=== PATIENT | male | born 1960 | race Caucasian/White ===

== ENCOUNTER 2019-08-20 09:36 | Outpatient (CLI) | payer OTHER, SELFPAY ==
--- NOTE | ~2019-08-20 | US_ITS ---
EXAMINATION: US venous doppler [facility] DATE: 08/20/2019 11:49 INDICATION: Right lower limb pain and swelling. Positive d-dimer. TECHNIQUE: Grayscale ultrasound images without and with compression and Doppler ultrasound images of the bilateral lower extremity veins were obtained. COMPARISON: None. FINDINGS: The visualized portions of right common femoral vein, profunda (deep) femoral vein and greater saphen ous vein outflow are patent. Noncompressible occlusive appearing deep venous thrombosis beginning in the inferior right femoral vein extending into the popliteal vein and below the knee into the gastroc nemius vein, posterior tibial veins and peroneal veins The visualized portions of left common femoral vein, profunda femoral vein, femoral vein, popliteal v ein, posterior tibial veins, peroneal veins, gastrocnemius vein and greater saphenous vein outflow ar e patent. IMPRESSION: 1. Deep venous thrombosis in the veins below the right knee extending into the inferior right femora l vein. 2. No deep venous thrombosis in the left lower limb. Reviewed, dictated and finalized at location A. IMPRESSION: 1. Deep venous thrombosis in the veins below the right knee extending into the inferior right femoral vein. 2. No deep venous thrombosis in the left lower limb.
[2019-08-20 09:51] LABS: Basophils Absolute Auto 0.04 K/mm3 (0.00-0.10); Basophils Percent Auto 0.7 % (0.0-1.0); Eosinophils Absolute Auto 0.32 K/mm3 (0.02-0.50); Eosinophils Percent Auto 5.5 % (1.0-6.0); Hematocrit 43.9 % (40.0-54.0); Hemoglobin 15.6 g/dL (14.0-18.0); Immature Granulocyte Absolute 0.01 K/mm3 (0.00-0.00); Immature Granulocyte Percent A 0.2 % (0.0-0.0); Lymphocytes Absolute Auto 1.58 K/mm3 (1.10-4.50); Lymphocytes Percent Auto 27.1 % (18.0-42.0); Mean Corpuscular HGB Conc 35.5 g/dL (32.0-36.0); Mean Corpuscular Hemoglobin 31.4 pg (27.0-31.0); Mean Corpuscular Volume 88.3 fL (78.0-102.0); Mean Platelet Volume 9.4 fl (8.7-11.0); Monocytes Absolute Auto 0.67 K/mm3 (0.10-0.90); Monocytes Percent Auto 11.5 % (2.0-11.0); Neutrophils Absolute Auto 3.2 K/mm3 (1.7-7.2); Platelet Count Result 203 K/mm3 (150-420); Red Blood Count 4.97 M/mm3 (4.70-6.10); Red Cell Distribution Width 11.9 % (11.6-14.4); White Blood Count 5.8 K/mm3 (4.8-10.8)
[2019-08-20 10:21] LABS: D Dimer 9.53 mg/L (0.19-0.50)
[2019-08-20 10:54] LABS: Alanine Aminotransferase 30 U/L (16-63); Alkaline Phosphatase 85 U/L (46-116); Aspartate Amino Transferase 31 U/L (15-37); Bilirubin,Total 0.9 mg/dL (0.00-1.00); Blood Urea Nitrogen 15 mg/dL (7-18); Calcium 9.1 mg/dL (8.5-10.1); Carbon Dioxide 30 mmol/L (21-32); Chloride 100 mmol/L (98-108); Estimated Glomerular Filt Rate > 60; Glucose 93 mg/dL (70-99); Osmolality Calculated 288 mOsm/kg (285-295); Sodium 139 mmol/L (136-145); Total Protein 7.6 g/dL (6.4-8.2)
[2019-08-20] MEDS: ENOXAPARIN 100 MG/ML SYRINGE SUB-Q (14:55)
[2019-08-20] MEDS: ENOXAPARIN 40 MG/0.4 ML SYRINGE SUB-Q (14:55)
[2019-09-04 15:56] LABS: Antithrombin III Activity 115 % activity (80-120); Protein S Antigen, Free 103 % normal (57-171)
== END 2019-08-20 09:37 | disposition home or self-care (01) ==
PROVIDERS: PCP Family Medicine; Visit Provider Family Medicine
DX: I80.11 Phlebitis and thrombophlebitis of right femoral vein (principal); R60.0 Localized edema; W57.XXXA Bitten or stung by nonvenomous insect and other nonvenomous arthropods, initial encounter
CPT/HCPCS: 36415; 80053; 81240; 81241; 85025; 85301; 85303; 85306; 85380; 86618; 93970; 96372; J1650

== ENCOUNTER 2019-08-21 14:56 | Outpatient (CLI) | payer OTHER, SELFPAY ==
[2019-08-21] MEDS: ENOXAPARIN 100 MG/ML SYRINGE SUB-Q (15:11)
[2019-08-21] MEDS: ENOXAPARIN 40 MG/0.4 ML SYRINGE SUB-Q (15:12)
== END 2019-08-21 14:57 | disposition home or self-care (01) ==
LOC: CHSTREATRM 14:57
PROVIDERS: PCP Family Medicine; Visit Provider Family Medicine
DX: I82.409 Acute embolism and thrombosis of unspecified deep veins of unspecified lower extremity (principal)
CPT/HCPCS: 96372; J1650

== ENCOUNTER 2020-10-08 10:40 | Outpatient (CLI) | payer MEDICAID, SELFPAY ==
--- NOTE | ~2020-10-08 | MR_ITS ---
EXAMINATION: MR brain/brain stem wo con EXAM DATE: 10/08/2020 11:27 INDICATION: Facial pain, persistent frontal headache. Sinus surgery 2010. TECHNIQUE: Magnetic resonance imaging (MRI) of the brain/brain stem obtained without contrast. Sagitt al T1, axial diffusion, gradient echo (T2*), T1, T2, FLAIR sequences obtained. There is no prior st udy for comparison. FINDINGS: There are no areas of restricted diffusion to suggest acute infarction. There is no acute hemorrhage seen on the T2*, a hemosiderin sensitive sequence. No intraparenchymal brain mass. The ve ntricles are normal in size. There are no extra-axial collections. Flow voids are seen in the cereb ral arteries on the T2-weighted sequences consistent with their expected patency. The orbits are unr emarkable. Soft tissue is unremarkable. Arachnoid cyst in the left middle cranial fossa anteriorly measuring 4 cm. This is not a clinically significant finding. IMPRESSION: Incidental left middle cranial fossa arachnoid cyst. Otherwise unremarkable MRI brain. Reviewed, dictated and finalized at location B. IMPRESSION: Incidental left middle cranial fossa arachnoid cyst. Otherwise unre markable MRI brain.
== END 2020-10-08 10:41 | disposition home or self-care (01) ==
LOC: CHSIMG 10:43
PROVIDERS: PCP Family Medicine; Visit Provider Family Medicine
DX: R51.9 Headache, unspecified (principal)
CPT/HCPCS: 70551

== ENCOUNTER 2021-04-29 16:09 | Outpatient (CLI) | payer OTHER, SELFPAY ==
--- NOTE | ~2021-04-29 | XR_ITS ---
EXAMINATION: XR abdomen obstructive series DATE: 04/29/2021 16:45 INDICATION: Left upper quadrant discomfort and intermittent constipation TECHNIQUE: Frontal supine and upright views of the abdomen were obtained. COMPARISON: None. FINDINGS: Large amount of stool scattered throughout the colon. No dilated loops of gas-filled bowel to suggest obstruction. No free intraperitoneal gas. Visualized lung bases are clear. Lung bases are clear. Hea rt size is normal. 15 degrees lumbar dextroscoliosis. IMPRESSION: 1. Large amount of colonic stool which could be seen with constipation. Reviewed, dictated and finalized at location A. SER AND OILER
[2021-04-29 16:27] LABS: Hematocrit 43.2 % (40.0-54.0); Hemoglobin 15.7 g/dL (14.0-18.0); Mean Corpuscular HGB Conc 36.3 g/dL (32.0-36.0); Mean Corpuscular Hemoglobin 34.4 pg (27.0-31.0); Mean Corpuscular Volume 94.7 fL (78.0-102.0); Mean Platelet Volume 9.3 fl (8.7-11.0); Platelet Count Result 150 K/mm3 (150-420); Red Blood Count 4.56 M/mm3 (4.70-6.10); White Blood Count 3.8 K/mm3 (4.8-10.8)
[2021-04-29 16:29] LABS: Appearance Urine Clear (Clear); Bilirubin Urine Negative (Negative); Color Urine Light Yellow (Yellow); Glucose Urine UA Negative (Negative); Ketones Urine Negative (Negative); Leukocyte Esterase Ur Negative (Negative); Nitrate Urine Negative (Negative); Protein Urine Negative (Negative); Urobilinogen Urine 0.2 mg/dL (0.2-1.0)
[2021-04-29 16:32] LABS: Add Urine Microscopic? YES; Bacteria Urine Trace /hpf; Blood Urine Trace-Intact (Negative); RBC Urine None seen /hpf (0-2); Squamous Epithelial Cell Urine Rare /hpf (Few); WBC Urine None seen /hpf (0-3)
[2021-04-29 16:49] LABS: Band Neutrophils Percent 1 % (0-6); Basophils Absolute Manual 0.03 K/mm3 (0-0.1); Basophils Percent Manual 1 % (0-1); Eosinophils Absolute Manual 0.11 K/mm3 (0.02-0.5); Eosinophils Percent Manual 3 % (1-6); Lymphocytes Absolute Manual 2.01 K/mm3 (1.1-4.5); Lymphocytes Percent Manual 53 % (18-44); Monocytes Absolute Manual 0.22 K/mm3 (0.1-0.90); Monocytes Percent Manual 6 % (3-9); Neutrophils Percent Manual 36 % (46-73); Platelet Estimate Adequate (Adequate); Total Cells Counted 100
[2021-04-29 17:03] LABS: Alanine Aminotransferase 80 U/L (16-63); Albumin Level 4.2 g/dL (3.4-5.0); Alkaline Phosphatase 64 U/L (46-116); Amylase 50 U/L (25-115); Anion Gap 9 mmol/L (8-16); Aspartate Amino Transferase 38 U/L (15-37); Bilirubin,Total 0.4 mg/dL (0.00-1.00); Blood Urea Nitrogen 17 mg/dL (7-18); Calcium 8.8 mg/dL (8.5-10.1); Carbon Dioxide 29 mmol/L (21-32); Chloride 103 mmol/L (98-108); Estimated Glomerular Filt Rate > 60; Glucose 93 mg/dL (70-99); Lipase 156 U/L (73-393); Osmolality Calculated 293 mOsm/kg (285-295); Potassium 3.9 mmol/L (3.5-5.1); Sodium 141 mmol/L (136-145); Total Protein 7.4 g/dL (6.4-8.2)
[2021-05-05 14:41] LABS: Hepatitis A Antibody IgM Nonreactive; Hepatitis B Core Antibody Nonreactive (Nonreactive); Hepatitis B Surface Antigen Nonreactive (Nonreactive); Hepatitis C Signal to Cutoff 0.01 ratio (<1.00); Hepatitis C Virus Antibody Nonreactive (Nonreactive)
== END 2021-04-29 16:10 | disposition home or self-care (01) ==
LOC: CHSLAB 16:12
PROVIDERS: PCP Family Medicine; Visit Provider Family Medicine
DX: R10.12 Left upper quadrant pain (principal); R94.5 Abnormal results of liver function studies
CPT/HCPCS: 36415; 74019; 80053; 80074; 81001; 82150; 83690; 85025

== ENCOUNTER 2021-05-05 08:12 | Outpatient (CLI) | payer OTHER, SELFPAY ==
--- NOTE | ~2021-05-05 | US_ITS ---
EXAMINATION: US right upper quadrant EXAM DATE: 05/05/2021 08:26 INDICATION: Elevated liver enzymes TECHNIQUE: Multiple grayscale and Doppler images of the abdomen right upper quadrant were obtained (b y a technologist who performed the scan) and subsequently reviewed. There is no prior study for frantz morgan. FINDINGS: The pancreatic head and body are normal in appearance. The pancreatic tail is not visualized. The l iver has normal echogenicity and contour. There are no focal liver lesions identified. There is no evidence of intrahepatic biliary duct dilation. Portal venous flow was seen in the hepatopedal, nor mal direction and has normal Doppler waveform. No right-sided hydronephrosis. Common bile duct measures 3 mm, which is normal. The gallbladder wall is normal in thickness, with ex pected amount of distention. No sonographic evidence of pericholecystic fluid. There is no cholelit hiases. Technologist performing exam reports patient did not demonstrate sonographic Mcmanus's sign. Please note that this sign is less reliable in patients who have received pain medication. IMPRESSION: Unremarkable abdominal ultrasound exam. Reviewed, dictated and finalized at location A. INUING EDUCATION DEAN
== END 2021-05-05 08:13 | disposition home or self-care (01) ==
LOC: CHSIMG 08:13
PROVIDERS: PCP Family Medicine; Visit Provider Family Medicine
DX: R94.5 Abnormal results of liver function studies (principal)
CPT/HCPCS: 76705

== ENCOUNTER 2021-05-15 08:42 | Outpatient (CLI) | payer OTHER, SELFPAY ==
--- NOTE | ~2021-05-15 | XR_ITS ---
EXAMINATION: XR barium swallow EXAM DATE: 05/15/2021 10:20 INDICATION: Left upper quadrant pain, belching. TECHNIQUE: Standard single and double contrast barium esophagram and upper GI examination was perform ed by radiologist Marquis Alvarado M.D. Pulsed dose reduction fluoroscopy was used with fluoroscopic time of 0.4 minutes. The DAP for this procedure was 1.1 Gycm2. A total of 28 images obtained for the ex am. FINDINGS: The pharynx is symmetric and without evidence of mass lesion or mucosal irregularity. Ther e is no esophageal stricture, diverticulum or mass identified. Small sliding gastroesophageal juncti on hernia with small amount of reflux demonstrated. The stomach has a normal appearance without evidence of mass lesion, ulceration or filling defect. T here is normal rugal fold pattern. The duodenum and duodenal sweep are normal in appearance. IMPRESSION: Small sliding gastroesophageal junction hernia with small amount of reflux demonstrated. Reviewed, dictated and finalized at location B. R DEVELOPER
== END 2021-05-15 08:43 | disposition home or self-care (01) ==
LOC: CHSIMG 08:44
PROVIDERS: PCP Family Medicine; Visit Provider Family Medicine
DX: R10.12 Left upper quadrant pain (principal)
CPT/HCPCS: 74220

== ENCOUNTER 2021-09-16 01:34 | Day surgery (SDC) | payer OTHER, SELFPAY ==
--- NOTE | 2021-08-11 09:12 | SUR.PREOP ---
Patient called to discuss prep for his colonoscopy. I let a message on his voicemail to return call.
[2021-09-16 07:50] VITALS: BP 136/73; PULSE 52; RESP 18; TEMP 36.5; O2SAT 100
[2021-09-16] MEDS: LACTATED RINGERS 1,000 ML 150 ML IV CONT (08:01)
--- NOTE | 2021-09-16 08:20 | WPDANESEPPF ---
Anes - Initial Pre Proc Eval Procedure: Operation Date: 09/16/21 09:15 Proposed Procedures p Esophagogastroduodenoscopy & Screening Colonoscopy - Blake Nascimento MD Date/Time: 09/16/21 08:20 Surgeon: Blake Nascimento MD Pre Op Diagnosis: hiatal hernia, burping, neoplasm screening Patient Data Age: 60 Gender: M Height: Weight: 89.7 kg Last Vital Signs Temp 36.5 C 09/16/21 07:50 Pulse 52 L 09/16/21 07:50 Resp 18 09/16/21 07:50 BP 136/73 09/16/21 07:50 Pulse Ox 100 09/16/21 07:50 O2 Del Method Room Air 09/16/21 07:50 Allergies Allergy/AdvReac Type Severity Reaction Status Date / Time No Known Allergies Allergy Unverified 09/16/21 07:48 Home Medications Medication Instructions Recorded Confirmed Type omeprazole 40 mg capsule,delayed 40 mg PO BID 07/02/21 08/31/21 History release Acidophilus Probiotic 08/31/21 08/31/21 History melatonin 1 mg tablet 1 mg PO DAILY 08/31/21 08/31/21 History Patient hx anesthesia problems: none Family hx anesthesia problems: none Results Review: All pre-operative results and documents have been reviewed as part of the pre-operative evaluation. [facility] Past Medical History Medical History Colon cancer screening Functional burping disorder Hiatal hernia Surgical History Surgical History History of appendectomy Social History Social History Smoking status: Never smoker Second hand tobacco smoke exposure: No Alcohol intake: current Drinks per week: 1 Substance use: never Substance use type: does not use Living arrangements: with family Gender identity (if verbalized by the patient): Male Anes - Eval Final PreProcedure Day of Procedure 09/16/21 08:20 Patient weight: normal Heart: regular rate and rhythm Lungs: clear to auscultation Airway: Mallampati scale class II Neurological: alert and oriented Last oral intake: >/= 8 hours ASA classification: II Emergent: no Anesthetic plan: proceed Anesthesia type and monitoring: general GIVS and standard monitoring Results Review: All pre-operative results and documents have been reviewed as part of the pre-operative evaluation. Informed Consent: The patient's anesthetic plan and its attendant risks and benefits were discussed with the patient/family/POA. Questions were solicited and answers provided to the satisfaction of the patient/family/POA.
--- NOTE | 2021-09-16 08:49 | PM.HPGS ---
History of Present Illness History of Present Illness Consent: Risks, benefits, and alternatives have been discussed and questions answered. Patient agrees to proceed with procedure. Chief complaint: hiatal hernia, burping, neoplasm screening Narrative: Sky Hill is a 60 year old male with burping, empiric ppi did not make a difference, esophagram showed small HH. Never had scopes. Review of Systems Constitutional: Constitutional: Denies headache(s) and Denies weakness Eyes: Eyes: Denies blurry vision ENT: Reports Normal hearing present, Denies headache(s) and Denies neck pain Cardiovascular: Cardiovascular: Denies chest pain and Denies dyspnea Respiratory: Respiratory: Denies dyspnea Gastrointestinal: Gastrointestinal: Reports no additional gastrointestinal complaints Genitourinary: Genitourinary: Denies dysuria Musculoskeletal: Musculoskeletal: Denies neck pain Integumentary/Breasts: Skin/Breast: Denies dry skin Neurologic: Reports Normal hearing present, Denies headache(s) and Denies weakness Psychiatric: Psychiatric: Denies anxiety Endocrine: Endocrine: Denies change in body appearance Hematologic/Lymphatic: Hematologic/Lymphatic: Denies easy bleeding Allergic/Immunologic: Allergic/Immunologic: Denies urticaria PMFSH Past Medical History Medical History Colon cancer screening Functional burping disorder Hiatal hernia Surgical History Surgical History History of appendectomy Social History Social History Smoking status: Never smoker Second hand tobacco smoke exposure: No Alcohol intake: current Drinks per week: 1 Substance use: never Substance use type: does not use Living arrangements: with family Gender identity (if verbalized by the patient): Male Meds Home Medications and Allergies Home Medications Medication Instructions Recorded Confirmed Type omeprazole 40 mg capsule,delayed 40 mg PO BID 07/02/21 08/31/21 History release Acidophilus Probiotic 08/31/21 08/31/21 History melatonin 1 mg tablet 1 mg PO DAILY 08/31/21 08/31/21 History Allergies Allergy/AdvReac Type Severity Reaction Status Date / Time No Known Allergies Allergy Unverified 09/16/21 07:48 Vital Signs Vital Signs - 24 hr 09/16/21 07:50 Temperature 97.7 F Pulse Rate 52 L Respiratory Rate 18 Blood Pressure 136/73 Pulse Oximetry 100 Oxygen Delivery Room Air Exam Const: General: comfortable and no acute distress HENMT: General nose exam: Normal nares present Eyes: General: appearance normal, both eyes and all related structures Neck: Neck: no JVD Resp: Auscultation: clear to auscultation bilaterally Cardio: Rate: regular rate Rhythm: regular rhythm GI: Inspection: non-distended GI Palp: Yes Soft to palpation Skin: General skin exam: normal color Neuro: General: gait normal Speech: normal speech Extrem: General: normal to inspection Psych: Mental Status: mental status grossly normal Assessment and Plan Assessment and plan (1) Functional burping disorder: Code(s): R14.2 - Eructation Status: Acute Assessment and Plan: egd to assess (2) Colon cancer screening: Code(s): Z12.11 - Encounter for screening for malignant neoplasm of colon Status: Acute Assessment and Plan: colonoscopy
[2021-09-16 09:31] VITALS: BP 91/60; PULSE 51; RESP 27; O2SAT 100
--- NOTE | 2021-09-16 09:33 | SUR.OPER ---
EGD START: 899; END: 903. COLONOSCOPY START: 909; END: 926.
[2021-09-16 09:41] VITALS: BP 102/58; PULSE 52; RESP 15; O2SAT 100
[2021-09-16 09:51] VITALS: BP 113/77; PULSE 53; RESP 19; O2SAT 100
== END 2021-09-16 10:06 | disposition home or self-care (01) ==
PROVIDERS: PCP Family Medicine; Visit Provider Internal Medicine Gastroenterology
PROC: 0DJ08ZZ Inspection of Upper Intestinal Tract, Via Natural or Artificial Opening Endoscopic (ICD-10-PCS; CPT 43235; principal; 2021-09-16 09:15)
DX: Z12.11 Encounter for screening for malignant neoplasm of colon (principal); K64.8 Other hemorrhoids; K29.50 Unspecified chronic gastritis without bleeding; R14.2 Eructation
CPT/HCPCS: 45385; 43239; 88305; J2001; J2704; J7120